=== PATIENT | female | born 1990 | race Caucasian/White ===

== ENCOUNTER 2024-03-25 09:42 | Emergency (ER) | payer OTHER ==
[~2024-03-25] VITALS: Ht 165.1 cm; Wt 61.4 kg
[2024-03-25 11:31] LABS: APPEARANCE, URINE CLEAR (CLEAR); BACTERIA, URINE AUTO NEGATIVE (NEGATIVE); BILIRUBIN, URINE AUTO NEGATIVE (NEGATIVE); BLOOD, URINE BLOOD 3+ (NEGATIVE); COLOR, URINE YELLOW (YELLOW); GLUCOSE, URINE (UA) AUTO NEGATIVE (NEGATIVE); KETONE, URINE AUTO NEGATIVE (NEGATIVE); LEUKOCYTE ESTERASE, URINE AUTO NEGATIVE (NEGATIVE); NITRITE, URINE AUTO NEGATIVE (NEGATIVE); PROTEIN, URINE AUTO NEGATIVE (NEGATIVE); RBC, URINE AUTO 66 /HPF (0-3); SPECIFIC GRAVITY URINE AUTO 1.005 (1.002-1.035); SQUAMOUS EPITHELIAL CELL UR AU 0 /HPF (0-6); UROBILINOGEN, URINE AUTO 0.2 mg/dL (0.0-2.0); WBC, URINE AUTO 2 /HPF (0-3)
[2024-03-25 11:37] LABS: URINE PREG TEST NEGATIVE (NEGATIVE)
[2024-03-25 12:44] VITALS: BP 126/73; TEMP 98.6; O2SAT 100
== END 2024-03-25 12:46 | disposition home or self-care (01) ==
LOC: M ED 09:42
DX: Z32.02 Encounter for pregnancy test, result negative (principal)

== ENCOUNTER → 2024-11-28 | Outpatient (CLI) | payer OTHER ==
[2024-11-28 13:58] LABS: HEMATOCRIT 38.4 % (36.0-47.0); HEMOGLOBIN 12.5 g/dl (12.0-15.5); MEAN CORPUSCULAR HEMOGLOBIN 29.5 pg (27.0-33.0); MEAN CORPUSCULAR HGB CONC 32.6 g/dl (32.0-36.5); MEAN CORPUSCULAR VOLUME 90.6 fl (80.0-96.0); PLATELET COUNT, AUTOMATED 271 10^3/uL (150-450); RED BLOOD COUNT 4.24 10^6/uL (4.00-5.40); WHITE BLOOD COUNT 7.1 10^3/uL (4.0-10.0)
[2024-11-28 15:12] LABS: HIV 1&2 SCREEN NEGATIVE (NEGATIVE)
[2024-11-28 15:20] LABS: HEPATITIS C VIRUS ABY INDEX 0.12 INDEX (<0.8)
[2024-11-28 15:40] LABS: GC DNA AMPLIFICATION NEGATIVE (NEGATIVE)
== END ==
LOC: M PLALAB 09:50
PROVIDERS: ATTEND Obstetrics & Gynecology
DX: Z34.80 Encounter for supervision of other normal pregnancy, unspecified trimester (principal)

== ENCOUNTER → 2025-01-10 | Outpatient (CLI) | payer OTHER | LOC: M PLALAB 10:39 | PROVIDERS: ATTEND Obstetrics & Gynecology | DX: Z34.80 Encounter for supervision of other normal pregnancy, unspecified trimester (principal) ==

== ENCOUNTER → 2025-01-26 | Outpatient (CLI) | payer OTHER | LOC: M WHC 09:44 | PROVIDERS: ATTEND Obstetrics & Gynecology | DX: Z36.89 Encounter for other specified antenatal screening (principal) ==